=== PATIENT | female | born 1965 | race Caucasian/White ===

== ENCOUNTER 2018-11-11 11:32 | Day surgery (SDC) | payer OTHER ==
[2018-11-11] MEDS ORDERED: MIDAZOLAM 1 MG/ML 2 ML INJ ×2 (14:03)
[2018-11-11] MEDS ORDERED: FENTAnyl 50 MCG/ML VIAL (14:03)
== END 2018-11-11 14:05 | disposition home or self-care (01) ==
LOC: GIL 11:32
DX: K92.1 Melena (principal); K64.8 Other hemorrhoids
CPT/HCPCS: 45378; 84703